=== PATIENT | female | born 1960 | race Caucasian/White ===

== ENCOUNTER 2017-08-03 18:23 | Emergency (ER) | payer BC, OTHER ==
[2017-08-03] MEDS ORDERED: Ondansetron 4 MG/2 ML SDV IVPUSH ONE (18:56)
[2017-08-03] MEDS ORDERED: Ketorolac 30 MG/ML SDV IVPUSH ONE (18:56)
[2017-08-03] MEDS ORDERED: Sodium Chloride 0.9% 1,000 ML IV SCH (19:00)
[2017-08-03] MEDS ORDERED: Sodium Chloride 0.9% 10 ML Syringe FLUSH PRN (19:08)
[2017-08-03] MEDS ORDERED: Sodium Chloride 0.9% 1,000 ML IV ONE (20:23)
[2017-08-03] MEDS ORDERED: Ondansetron 4 MG Tab.DIS PO ONE (21:08)
--- NOTE | 2017-08-04 08:25 | ER ---
DATE SEEN: 08/03/2017 CHIEF COMPLAINT: Abdominal pain. HISTORY OF PRESENT ILLNESS: This is a 57-year-old female with pain that started on Wednesday on the right upper quadrant, squeezing in nature, associated with nausea and worse with food. She has had this pain before and has been worked up by Gemma at the clinic. No diagnosis has been found. She denies fever, chills, nausea, or vomiting. No chest pain. PAST MEDICAL HISTORY: Hypertension. ALLERGIES: No known allergies. SOCIAL HISTORY: Occasional drink. PHYSICAL EXAMINATION: GENERAL: Well hydrated. VITAL SIGNS: Blood pressure initially 160/111, afebrile, and temperature 96.8. ABDOMEN: Soft with mild tenderness in right upper quadrant. MENTAL STATUS: Alert. NEUROLOGIC: No focal findings. SKIN: No pallor or jaundice. LABORATORY DATA: White cell count 17,000. Electrolytes are normal. Amylase is negative. Urine is negative. An ultrasound of the gallbladder is negative. IMPRESSION: Right upper quadrant abdominal pain. PLAN: 1 L of normal saline, Zofran and Toradol helped, symptoms improved. The patient discharged on Zofran. Followup with Gemma Trevino tomorrow. TIME SEEN: 2100 hours. /[id number] JASON/ROSHNI
--- NOTE | 2017-08-04 11:32 | US ---
INDICATION: Nausea, vomiting, abdominal pain right upper quadrant. RIGHT UPPER QUADRANT/GALLBLADDER ULTRASOUND: Multiple ultrasonic images were obtained 08/03/2017 and revealed the liver to have a normal appearance. The common bile duct appeared normal at 3.4 mm. Gallbladder measured 7 x 3 x 4.2 cm without evidence of wall thickening, calculi , sludge, pericholecystic fluid, or positive ultrasonic Saunders sign. The IVC was phasic. The right kidney measured 9.5 x 3.7 cm. There may be a mild degree of thinning of the right renal cortex. No other renal abnormality was suggested. The tail area of the pancreas was not well seen. The pancreas otherwise appeared fairly normal. No mass lesions or free fluid collections were identified. IMPRESSION: 1. Question a mild degree of renal cortical thinning on the right. 2. Right upper quadrant/gallbladder ultrasound otherwise unremarkable. MTDD
== END 2017-08-03 21:16 | disposition home or self-care (01) ==
LOC: FB.ED 18:23
DX: R10.11 Right upper quadrant pain (principal); I10 Essential (primary) hypertension
CPT/HCPCS: 36415; 76705; 80053; 81001; 82150; 85025; 86140; 96361; 96374; 96375; 99284; J1885; J2405; J7040; J7050; A9270-GY

== ENCOUNTER 2019-06-25 11:45 | Emergency (ER) | payer OTHER ==
--- NOTE | 2019-06-25 12:12 | EDM.PDOC ---
ED HPI GENERAL MEDICAL PROBLEM - General Chief Complaint: Skin Complaint Stated Complaint: INFECTION LT INDEX FINGER Time Seen by Provider: 06/25/19 11:55 Source of Information: Reports: Patient - History of Present Illness INITIAL COMMENTS - FREE TEXT/NARRATIVE: Patient is a 59 YO WF who was referred from the clinic for evalutaion. She was diagnosed with cellulitis of the left index finger yesterday and was a given Rocephin 1 gm IM. She noticed that there are red stricks on left forearm today, she denies having any fever chills,nausea/vomiting. - Related Data Allergies Allergy/AdvReac Type Severity Reaction Status Date / Time No Known Allergies Allergy Verified 08/03/17 18:47 Home Meds: Home Meds Losartan [Cozaar] 100 mg PO DAILY 08/03/17 [History] cephALEXin [Keflex] 500 mg PO QID #30 cap 06/25/19 [Rx] Past Medical History HEENT History: Reports: Impaired Vision Other HEENT History: wears glasses Cardiovascular History: Reports: Hypertension Genitourinary History: Reports: Other (See Below) Other Genitourinary History: kidney diease - Infectious Disease History Infectious Disease History: Reports: Chicken Pox, Measles, Shingles Social & Family History - Family History Family Medical History: Noncontributory - Tobacco Use Smoking Status *Q: Never Smoker Second Hand Smoke Exposure: No - Caffeine Use Caffeine Use: Reports: Coffee - Recreational Drug Use Recreational Drug Use: No ED ROS GENERAL - Review of Systems Review Of Systems: See Below Constitutional: Reports: No Symptoms HEENT: Reports: No Symptoms Respiratory: Reports: No Symptoms Cardiovascular: Reports: No Symptoms Endocrine: Reports: No Symptoms : Reports: No Symptoms Musculoskeletal: Reports: No Symptoms Skin: Reports: Change in Color ED EXAM, SKIN/RASH Exam: See Below Exam Limited By: No Limitations General Appearance: Alert, No Apparent Distress Ears: Normal External Exam, Normal Canal, Hearing Grossly Normal Nose: Normal Inspection, Normal Mucosa, No Blood Throat/Mouth: Normal Inspection, Normal Lips, Normal Gums Head: Atraumatic, Normocephalic Neck: Normal Inspection, Supple, Non-Tender, Full Range of Motion Respiratory/Chest: No Respiratory Distress, Lungs Clear, Normal Breath Sounds, No Accessory Muscle Use Cardiovascular: Normal Peripheral Pulses, Regular Rate, Rhythm, No Edema, No Gallop, No JVD, No Murmur GI/Abdominal: Normal Bowel Sounds, Soft, Non-Tender, No Organomegaly Back Exam: Normal Inspection, Full Range of Motion Extremities: Normal Inspection, Normal Range of Motion Location, Skin: Other (redness left index finger, red stricks left forearm-mild. ) Course - Vital Signs Last Recorded V/S: Last Vital Signs Temp 36.5 C 06/25/19 11:52 Pulse 82 06/25/19 11:52 Resp 17 06/25/19 11:52 BP 123/87 06/25/19 11:52 Pulse Ox 98 06/25/19 11:52 Departure - Departure Time of Disposition: 12:10 Disposition: Home, Self-Care 01 Condition: Good Clinical Impression: Cellulitis, Lymphangitis - Discharge Information *PRESCRIPTION DRUG MONITORING PROGRAM REVIEWED*: No *COPY OF PRESCRIPTION DRUG MONITORING REPORT IN PATIENT RAO: No Prescriptions: cephALEXin [Keflex] 500 mg PO QID #30 cap Instructions: Cellulitis, Adult, Lymphangitis, Adult Referrals: Gemma Trevino NP [Primary Care Provider] - Forms: ED Department Discharge Additional Instructions: Please read discharge instructions on cellulitis and lymphangitis Keflex/cephalexin 500 mg 4 times daily for 10 days Return to the ED if your develop fever,chills,nausea,vomiting Follow up with your doctor in 3-5 days
== END 2019-06-25 12:15 | disposition home or self-care (01) ==
LOC: FB.ED 11:45
DX: I89.1 Lymphangitis (principal)
CPT/HCPCS: 99283

== ENCOUNTER 2024-07-24 23:42 | Emergency (ER) | payer BC ==
[2024-07-25] MEDS: Ondansetron 4 MG/2 ML SDV IVPUSH ONE (00:41)
[2024-07-25] MEDS: Sodium Chloride 0.9% 1,000 ML IV ONE ×2 (00:41→02:00)
[2024-07-25] MEDS: Ketorolac 30 MG/ML SDV IVPUSH ONE (00:41)
[2024-07-25 00:55] LABS: BLOOD UREA NITROGEN,BUN 24 mg/dL (7-18); CALCIUM 10.5 mg/dL (8.6-10.2); CARBON DIOXIDE,CO2 25 mmol/L (21-32); CHLORIDE,CL 100 mmol/L (100-110); EST CRCL DRUG DOSING (CG) 60.18 mL/min; ESTIMATED GFR 63 mL/min (>60); GLUCOSE RANDOM 172 mg/dL (80-116); POTASSIUM,K 3.4 mmol/L (3.5-5.3); SODIUM,NA 137 mmol/L (135-145)
[2024-07-25 00:59] LABS: HEMATOCRIT 48.4 % (34.2-48.2); HEMOGLOBIN 16.2 g/dL (11.4-15.5); MEAN CORPUSCULAR HEMOGLOBIN 29.2 pg (23.9-33.9); MEAN CORPUSCULAR HGB CONC 33.4 g/dL (31.9-34.8); MEAN CORPUSCULAR VOLUME 87.4 fL (76.7-100.5); MEAN PLATELET VOLUME 11.6 fL (7.1-12.4); PLATELET COUNT,PLT 181 x10(3)uL (151-488); RED BLOOD CELL COUNT 5.54 x10(6)uL (3.60-5.20); RED CELL DISTRIBUTION WIDTH 14.1 % (12.3-16.5); WHITE BLOOD CELL COUNT,WBC 16.1 x10-3/uL (3.0-10.3)
[2024-07-25 01:06] LABS: A/G RATIO 1.1; ALANINE AMINOTRANSFERASE,ALT 40 U/L (12-36); ALBUMIN 4.5 g/dL (3.2-4.6); ALKALINE PHOSPHATASE 94 IU/L (56-112); ASPARTATE AMNIOTRANSFERASE,AST 25 IU/L (5-25); BILIRUBIN TOTAL 0.8 mg/dL (0.1-1.3); PROTEIN TOTAL,TP 8.5 g/dL (6.0-8.0)
[2024-07-25 01:08] LABS: BAND PERCENT MAN 3 % (0-6); LYMPHOCYTES PERCENT MAN 13 % (13-37); SEG NEUTROPHILS PERCENT MAN 79 % (46-82)
[2024-07-25 01:09] LABS: MONOCYTES PERCENT MAN 5 % (4-12)
[2024-07-25] MEDS: Iopamidol 755 Mg/ML 100 ML Bottle IV ONE (01:26)
[2024-07-25 02:14] LABS: BILIRUBIN,URINE NEGATIVE (NEGATIVE); GLUCOSE,URINE NORMAL (NORMAL); KETONES,URINE 50 mg/dL (NEGATIVE); LEUKOCYTE ESTERASE,URINE NEGATIVE (NEGATIVE); NITRITE,URINE NEGATIVE (NEGATIVE); OCCULT BLOOD,URINE NEGATIVE (NEGATIVE); PROTEIN,URINE TRACE mg/dL (NEGATIVE); UROBILINOGEN,URINE NORMAL (NEGATIVE)
[2024-07-25] MEDS ORDERED: Piperacillin/Tazobactam 3.375 GM in Sodium Chloride 0.9% 50 ML IV STA (02:14)
[2024-07-25 02:20] LABS: APPEARANCE,URINE CLEAR (CLEAR); BACTERIA,URINE FEW (NS); COLOR,URINE YELLOW (YELLOW); MUCUS,URINE FEW (NS); RBC,URINE 0-5 (0-5); SQUAMOUS EPITHELIAL CELLS,UR FEW (NS,R,O); WBC,URINE 0-5 (0-5)
== END 2024-07-25 02:47 ==
LOC: FB.ED 23:42
DX: K56.609 Unspecified intestinal obstruction, unspecified as to partial versus complete obstruction (principal); I10 Essential (primary) hypertension; Z79.899 Other long term (current) drug therapy
CPT/HCPCS: 36415; 74177; 80053; 81001; 83605; 83690; 85025; 96361; 96374; 96375; 99285; 99285-25; J1885; J2405; J7030; Q9967